=== PATIENT | male | born 1945 ===

== ENCOUNTER 2023-04-05 07:28 | Inpatient (IN) | payer OTHER ==
[~2023-04-05] VITALS: Ht 175.3 cm; Wt 93.9 kg
[2023-04-05] MEDS ORDERED: ADULT LOW DOSE81 M1 PO (07:57)
[2023-04-05] MEDS ORDERED: METOP PO (07:57)
[2023-04-05] MEDS ORDERED: PEPCID PO (07:58)
[2023-04-05] MEDS ORDERED: [UNRECOGNIZED DRUG - OTHER] PO (07:59)
[2023-04-22] MEDS ORDERED: METFORMIN HCL500 M4 (15:40)
[2023-04-22] MEDS ORDERED: ATORVASTATIN CA40 MG (15:40)
[2023-04-22] MEDS ORDERED: SIMETHICONE125 M2 (15:40)
[2023-04-22] MEDS ORDERED: METOPROLOL SUCC50 MG (15:40)
[2023-04-22] MEDS ORDERED: PANTOPRAZOLE SO40 MG (15:40)
[2023-04-22] MEDS ORDERED: FAMOTIDINE20 MG (15:40)
[2023-04-24] MEDS ORDERED: BACTRIM DS TAB1 EACH PO (06:32)
[2023-04-24] MEDS ORDERED: XARELTO10 MG PO (06:32)
[2023-04-24] MEDS ORDERED: OXYC1TAB9 PO (06:32)
[2023-04-24] MEDS ORDERED: INTEGRA PLUS C1 EACH PO (06:32)
== END 2023-04-24 14:07 | DRG 470 ==
LOC: EDBD → SURG → O/R 04-22 06:21 → SURG 04-22 18:28
PROVIDERS: ADMIT Orthopaedic Surgery Sports Medicine; ATTEND Orthopaedic Surgery Sports Medicine
PROC: 0SRD0J9 Replacement of Left Knee Joint with Synthetic Substitute, Cemented, Open Approach (ICD-10-PCS; principal; 2023-04-22 13:45)
DX: M17.12 Unilateral primary osteoarthritis, left knee (principal)

== ENCOUNTER 2023-04-22 07:27 | Outpatient (CLI) | payer OTHER ==
[~2023-04-22 07:27] MED LIST: ADULT LOW DOSE81 M1 PO; METOP PO; PEPCID PO; [UNRECOGNIZED DRUG - OTHER] PO
[2023-04-22] MEDS ORDERED: METFORMIN HCL500 M4 (15:40)
[2023-04-22] MEDS ORDERED: PANTOPRAZOLE SO40 MG (15:40)
[2023-04-22] MEDS ORDERED: FAMOTIDINE20 MG (15:40)
[2023-04-22] MEDS ORDERED: METOPROLOL SUCC50 MG (15:40)
[2023-04-22] MEDS ORDERED: SIMETHICONE125 M2 (15:40)
[2023-04-22] MEDS ORDERED: ATORVASTATIN CA40 MG (15:40)
== END 2023-04-22 07:29 | disposition home or self-care (01) ==
LOC: LAB 07:27 → EDBD 07:27 → LAB 07:29
PROVIDERS: ATTEND Orthopaedic Surgery Sports Medicine
DX: Z20.822 Contact with and (suspected) exposure to COVID-19 (principal)

== ENCOUNTER 2024-12-04 07:25 | Inpatient (IN) | payer OTHER ==
[~2024-12-04] VITALS: Ht 175.3 cm; Wt 97.5 kg
[~2024-12-04 07:25] MED LIST changes: +ATORVASTATIN CA40 MG; +BACTRIM DS TAB1 EACH PO; +FAMOTIDINE20 MG; +INTEGRA PLUS C1 EACH PO; +METFORMIN HCL500 M4; +METOPROLOL SUCC50 MG; +OXYC1TAB9 PO; +PANTOPRAZOLE SO40 MG; +SIMETHICONE125 M2; +XARELTO10 MG PO
[2024-12-04] MEDS ORDERED: CATAFLAM (07:52)
[2024-12-04 08:13] VITALS: BP 150/88
[2024-12-04 08:30] LABS: INR 1.07; PROTHROMBIN TIME 11.6 SECONDS (9.0-11.5)
[2024-12-04 08:35] LABS: PH,URINE 5.5 (5.0-8.0); URINE APPEARANCE Clear; URINE BILIRRUBIN Negative (NEGATIVE); URINE BLOOD Negative; URINE COLOR Yellow; URINE GLUCOSE Negative (NEGATIVE); URINE KETONE Negative (NEGATIVE); URINE LEUKOCYTE Negative; URINE NITRATE Negative; URINE PROTEIN Negative (NEGATIVE); URINE UROBILINOGEN 0.2 E.U./dl
[2024-12-04 08:39] LABS: URINE BACTERIA 654.6 uL (0.0-1933); URINE EPITHELIAL CELLS 20.5 uL (0.0-38.8); URINE RBC 12.9 uL (0.0-20.8); URINE WBC 20.4 uL (0.0-23.2)
[2024-12-04 08:46] LABS: HEMATOCRIT 44.3 % (39.0-48.0); HEMOGLOBIN 14.7 g/dL (13-16.00); MEAN CELL VOLUME 92.1 fL (80.0-100.00); MEAN CORPUSCULAR HEMOGLOBIN 30.6 pg (27.00-32.0); MEAN CORPUSCULAR HGB CONC 33.2 g/dl (32.0-36.0); PLATELET COUNT 186 K/uL (150-450); RED BLOOD COUNT 4.81 M/uL (4.00-6.00); RED CELL DISTRIBUTION WIDTH 14.7 % (11.5-14.5)
[2024-12-04 08:53] LABS: URINE CAST 0.14 uL (0.0-1.40)
[2024-12-04 09:13] LABS: ALBUMIN 4.1 gm/dL (3.4-5.0); BILIRUBIN TOTAL 0.86 mg/dL (0.3-1.2); CALCIUM 9.6 mg/dL (8.5-10.1); CREATININE SERUM 0.98 mg/dL (0.70-1.30); GFR 73.59; GLOBULINA 3.5 G/DL (2.4-3.5); POTASSIUM 4.98 mEq/L (3.5-5.1); TOTAL PROTEIN 7.6 gm/dL (6.4-8.2)
[2024-12-04 09:19] LABS: RH POSITIVE
[2024-12-21] MEDS ORDERED: CEFAZOLIN SODIUM 1,000 MG VIAL ONE ×2 (06:53→12:04)
[2024-12-21] MEDS ORDERED: LIDOCAINE HCL 1%/EPINEPHRINE 20ML VIAL IJ ONE (06:56)
[2024-12-21] MEDS ORDERED: BUPIVACAINE HCL/MPF 0.5% 30ML VIAL ONE (06:56)
[2024-12-21] MEDS ORDERED: TRANEXAMIC ACID 100MG/1ML (1000MG) AMPUL IV ONE (07:06)
[2024-12-21] MEDS ORDERED: VANCOMYCIN HCL 1,000 MG VIAL ONE (07:56)
[2024-12-21] MEDS ORDERED: KETOROLAC TROMETHAMINE 60 MG VIAL IM ONE (07:56)
[2024-12-21] MEDS ORDERED: METHYLPREDNISOLONE ACETATE 80 MG/ML VIAL ONE (07:56)
[2024-12-21] MEDS ORDERED: MORPHINE SULFATE 4 MG/ML VIAL IV ONE ×2 (08:45→13:15)
[2024-12-21] MEDS ORDERED: GENTAMICIN SULFATE 40 MG/ML VIAL IV SCH (09:58)
[2024-12-21] MEDS ORDERED: SODIUM CHLORIDE 0.45 % 1,000 ML IV SCH (10:00)
[2024-12-21] MEDS ORDERED: MORPHINE SULFATE 4 MG/ML VIAL IV PRN (10:00)
[2024-12-21] MEDS ORDERED: ONDANSETRON HCL 2 MG/ML VIAL IV PRN (10:00)
[2024-12-21] MEDS ORDERED: MORPHINE SULFATE 2 MG/ML SYRINGE IV ONE (10:00)
[2024-12-21] MEDS ORDERED: GENTAMICIN SULFATE 40 MG/ML VIAL ONE (11:43)
[2024-12-21] MEDS ORDERED: CEFAZOLIN SODIUM 1,000 MG VIAL IV SCH (12:00)
[2024-12-21 12:57] LABS: HEMATOCRIT 39.4 % (39.0-48.0); RED BLOOD COUNT 4.29 M/uL (4.00-6.00)
[2024-12-21 14:21] VITALS: BP 146/51; O2SAT 98
[2024-12-21 17:44] VITALS: BP 155/67; O2SAT 96
[2024-12-22 01:16] VITALS: BP 111/64; O2SAT 95
[2024-12-22 06:52] LABS: HEMATOCRIT 37.7 % (39.0-48.0); HEMOGLOBIN 12.3 g/dL (13-16.00); MEAN CELL VOLUME 91.8 fL (80.0-100.00); MEAN CORPUSCULAR HEMOGLOBIN 30.1 pg (27.00-32.0); MEAN CORPUSCULAR HGB CONC 32.8 g/dl (32.0-36.0); PLATELET COUNT 168 K/uL (150-450); RED BLOOD COUNT 4.11 M/uL (4.00-6.00); RED CELL DISTRIBUTION WIDTH 14.5 % (11.5-14.5)
[2024-12-22 08:00] VITALS: BP 155/77; O2SAT 96
[2024-12-22] MEDS ORDERED: ACETAMINOPHEN WITH CODEINE 1 UDTAB TABLET PO PRN (08:00)
[2024-12-22] MEDS ORDERED: SENNA/DOCUSATE SODIUM 1 TAB TABLET PO SCH (09:00)
[2024-12-22] MEDS ORDERED: ATORVASTATIN CALCIUM 40 MG TABLET PO SCH (09:00)
[2024-12-22] MEDS ORDERED: IRON FUM,PS/FOLIC/BCOMP,C NO.9 1 CAP CAPSULE PO SCH (09:00)
[2024-12-22] MEDS ORDERED: RIVAROXABAN 10 MG TAB PO SCH (09:00)
[2024-12-22] MEDS ORDERED: METOPROLOL SUCCINATE 50 MG TAB.SR.24H PO SCH (09:00)
[2024-12-22] MEDS ORDERED: CELECOXIB 200 MG CAPSULE PO SCH (09:00)
[2024-12-22] MEDS ORDERED: BACITRACIN 28.35 GM OINT.TUBE TOP SCH (09:00)
[2024-12-22 12:13] LABS: COVID-19 AG NEGATIVE (NEGATIVE)
[2024-12-22 16:00] VITALS: BP 136/57; O2SAT 95
[2024-12-23 01:08] VITALS: BP 143/76; O2SAT 96
[2024-12-23] MEDS ORDERED: Septra Ds Tablet PO (06:36)
[2024-12-23] MEDS ORDERED: INTEGRA PLUS C1 EACH PO (06:36)
[2024-12-23] MEDS ORDERED: XARELTO10 MG PO (06:36)
[2024-12-23] MEDS ORDERED: ACETAMINOPHEN-1 EAC2 PO (06:37)
[2024-12-23 08:01] LABS: HEMATOCRIT 35.9 % (39.0-48.0); HEMOGLOBIN 12.1 g/dL (13-16.00); MEAN CELL VOLUME 91.3 fL (80.0-100.00); MEAN CORPUSCULAR HEMOGLOBIN 30.7 pg (27.00-32.0); MEAN CORPUSCULAR HGB CONC 33.6 g/dl (32.0-36.0); PLATELET COUNT 157 K/uL (150-450); RED BLOOD COUNT 3.93 M/uL (4.00-6.00); RED CELL DISTRIBUTION WIDTH 14.8 % (11.5-14.5)
[2024-12-23] MEDS ORDERED: SULFAMETHOXAZOLE/TRIMETHOPRIM DS 1 TAB PO SCH (09:00)
[2024-12-23 14:57] VITALS: BP 153/83; O2SAT 95
[2024-12-23 16:00] VITALS: BP 141/70; O2SAT 97
== END 2024-12-23 19:38 | disposition home or self-care (01) | DRG 470 ==
LOC: SURH 12-21 05:50 → O/R 12-21 05:50 → SURH 12-21 07:45
PROVIDERS: ADMIT Orthopaedic Surgery Sports Medicine; ATTEND Orthopaedic Surgery Sports Medicine
PROC: 0SRC0J9 Replacement of Right Knee Joint with Synthetic Substitute, Cemented, Open Approach (ICD-10-PCS; principal; 2024-12-21 13:00)
DX: M17.11 Unilateral primary osteoarthritis, right knee (principal)